=== PATIENT | male | born 1970 | race Caucasian/White ===

== ENCOUNTER 2019-03-31 14:00 | Day surgery (SDC) | payer BC ==
[~2019-03-31] VITALS: Ht 188 cm; Wt 118.6 kg
== END 2019-03-31 23:53 | disposition home or self-care (01) ==
LOC: EDBD → OR 14:00 → MERGE 16:00 → 4NOR 22:45 → OR 23:53
PROVIDERS: ATTEND Surgery
DX: I12.9 Hypertensive chronic kidney disease with stage 1 through stage 4 chronic kidney disease, or unspecified chronic kidney disease (principal); N18.4 Chronic kidney disease, stage 4 (severe); J44.9 Chronic obstructive pulmonary disease, unspecified; M10.9 Gout, unspecified; Z79.891 Long term (current) use of opiate analgesic; Z79.899 Other long term (current) drug therapy; Z87.891 Personal history of nicotine dependence; Z82.49 Family history of ischemic heart disease and other diseases of the circulatory system
CPT/HCPCS: 36415; 36821; 80053; 85025; J0690; J1100; J1644; J2250; J2405; J2704; J3010; G0378; J2720; J2440